=== PATIENT | male | born 1965 | race Two or more races ===

== ENCOUNTER 2016-07-19 20:12 | Emergency (ER) | payer MEDICAID ==
[~2016-07-19] VITALS: Ht 170.2 cm; Wt 102.1 kg
[2016-07-19 20:25] VITALS: BP 147/64
[2016-07-19] MEDS ORDERED: DIPHTH,PERTUSS(ACELL),TET TOX 0.5 ML DISP.SYRIN. VAX IM ONE (21:00)
--- NOTE | 2016-07-19 21:04 | PHYS DOC ---
Past Medical History Past Medical History: No Pertinent History Past Surgical History: No Surgical History Alcohol Use: None Drug Use: None Adult General Chief Complaint Chief Complaint: INSECT BITE [facility] HPI Patient is a 50 year old male presents to the emergency department stating that he has had a tick on his right testicular area for the last 2 months. He denies any fever, chills or any nausea vomiting. He denies any generalized body aches and discomfort. Patient states that he pulled the tick off tonight. Patient continues to state that he's been having difficulty hearing out of his right ear. Patient is unsure when his last tetanus immunization occurred. Review of Systems Review of Systems Constitutional: Denies fever or chills [] Eyes: Denies change in visual acuity, redness, or eye pain [] HENT: Denies nasal congestion or sore throat. C/o decrease hearing from the right ear Respiratory: Denies cough or shortness of breath [] Cardiovascular: No additional information not addressed in HPI [] GI: Denies abdominal pain, nausea, vomiting, bloody stools or diarrhea [] : Denies dysuria or hematuria [] Musculoskeletal: Denies back pain or joint pain [] Integument: Denies rash or skin lesions. C/o tick removal from right testicular area Neurologic: Denies headache, focal weakness or sensory changes [] Endocrine: Denies polyuria or polydipsia [] Current Medications Current Medications Current Medications Medications (Trade) Dose Ordered Sig/[place] Start Time Stop Time Status Last Admin Dose Admin Diphtheria/ Tetanus/Acell Pertussis (Boostrix) 0.5 ml ONCE ONCE 07/19/16 21:00 07/19/16 21:01 DC Allergies Allergies Allergies Coded Allergies Type Severity Reaction Last Updated Verified No Known Drug Allergies 07/19/16 No Physical Exam Physical Exam Constitutional: Well developed, well nourished, no acute distress, non-toxic appearance. [] HENT: Normocephalic, atraumatic, bilateral external ears normal, oropharynx moist, no oral exudates, nose normal. Bilateral TM normal, ear canal appears red from irrigation for cerumen impaction. Patient with throat without redness, erythema or redness Eyes: PERRLA, EOMI, conjunctiva normal, no discharge. [] Neck: Normal range of motion, no tenderness, supple, no stridor. [] Cardiovascular:Heart rate regular rhythm, no murmur [] Lungs & Thorax: Bilateral breath sounds clear to auscultation [] Skin: Warm, dry, no erythema, no rash. patient with mike area noted to the right testicular area. No drainage or discharge noted to the area. Back: No tenderness Extremities: No tenderness, no cyanosis, no clubbing, ROM intact, no edema. [] Neurologic: Alert and oriented X 3, normal motor function, normal sensory function, no focal deficits noted. [] Psychologic: Affect normal, judgement normal, mood normal. [] Current Patient Data Vital Signs Vital Signs Date Time Temp Pulse Resp B/P (MAP) Pulse Ox O2 Delivery O2 Flow Rate FiO2 07/19/16 20:25 98.6 99 20 97 Room Air 98.6 EKG EKG [] Radiology/Procedures Radiology/Procedures [] Course & Med Decision Making Course & Med Decision Making Pertinent Labs and Imaging studies reviewed. (See chart for details) Patients right ear was irrigated patient will be discharged home in stable condition. Signs and symptoms to return to the emergency department as been provided. Patient will be placed on Doxy with recommendations to followup with primary care provider in 5-7 days. Patient agrees with discharge instructions, treatment regimen and followup recommendations. [] Dragon Disclaimer Dragon Disclaimer This electronic medical record was generated, in whole or in part, using a voice recognition dictation system. Departure Departure Impression: Primary Impression: Tick bite Additional Impression: Impacted cerumen of right ear Disposition: HOME, SELF-CARE Condition: STABLE Referrals: NO PCP (PCP) Patient Instructions: Cerumen Impaction, Wood Tick Bite, [id number] Additional Instructions: Activity as tolerated Medication as prescribed Tylenol or Ibuprofen for pain and discomfort and fever Drink plenty of fluids Followup with primary care provider in 5-7 days Return to emergency department as needed for signs and symptoms that become Scripts Doxycycline Hyclate (DOXYCYCLINE HYCLATE) 100 Mg Capsule 1 CAP PO BID, #20 CAP Prov: CONG VALENTIN APRN 07/19/16 Problem Qualifiers CONG VALENTIN APRN Jul 19, 2016 21:04
[2016-07-19] MEDS ORDERED: DOXY100C2 PO (21:09)
== END 2016-07-19 21:24 | disposition home or self-care (01) ==
LOC: ER 20:12
DX: S30.863A Insect bite (nonvenomous) of scrotum and testes, initial encounter (principal); H61.21 Impacted cerumen, right ear; W57.XXXA Bitten or stung by nonvenomous insect and other nonvenomous arthropods, initial encounter; Y93.89 Activity, other specified; Y92.89 Other specified places as the place of occurrence of the external cause; Y99.8 Other external cause status
CPT/HCPCS: 69209; 90471; 90715; 99283-25